=== PATIENT | female | born 1990 | race Caucasian/White ===

== ENCOUNTER 2019-07-28 11:33 | Emergency (ER) | payer SELFPAY ==
[~2019-07-28] VITALS: Ht 170.2 cm; Wt 71.2 kg
[2019-07-28 11:59] VITALS: Ht 170.2 cm; Wt 71.2 kg
[2019-07-28 14:05] VITALS: BP 116/62
== END 2019-07-28 14:05 | disposition home or self-care (01) ==
LOC: ED 11:33
DX: J03.90 Acute tonsillitis, unspecified (principal)
CPT/HCPCS: U0003-CS